=== PATIENT | female | born 2000 | race Hispanic/Latino ===

== ENCOUNTER 2020-12-16 09:18 | Emergency (ER) | payer OTHER, SELFPAY ==
[2020-12-16 10:18] LABS: #Monocytes 0.6 10x3/uL (0.0-1.1); #Neutrophils 5.8 10x3/uL (1.5-8.4); %Basophils 0.2 % (0.0-2.0); %Eosinophils 0.5 % (0.0-6.0); %Lymphocytes 25.1 % (18.0-47.0); %Monocytes 6.7 % (0.0-10.0); %Neutrophils 67.3 % (40.0-75.0); Hemoglobin 10.3 g/dL (12.0-15.5); Mean Corpuscular HGB CONC 31.1 g/dL (32.0-36.0); Mean Platelet Volume 9.8 fl (7.4-10.4); Platelet Count 254 10x3/uL (150-450); RBC Distribution Width 14.4 % (11.5-14.5); White Blood Cell (WBC) Count 8.6 10x3/uL (3.5-10.5)
== END 2020-12-16 12:03 | disposition home or self-care (01) ==
LOC: CSHERS 09:18
DX: O9A.211 Injury, poisoning and certain other consequences of external causes complicating pregnancy, first trimester (principal); S00.81XA Abrasion of other part of head, initial encounter; Y04.8XXA Assault by other bodily force, initial encounter; O20.9 Hemorrhage in early pregnancy, unspecified; O99.011 Anemia complicating pregnancy, first trimester; Z3A.10 10 weeks gestation of pregnancy
CPT/HCPCS: 76856; 84702; 85025; 86900; 86901; 90384; 96372

== ENCOUNTER 2021-07-07 22:18 | Day surgery (SDC) | payer OTHER ==
[2021-07-07 22:42] VITALS: BMI 32.3
[2021-07-07] MEDS ORDERED: hydrALAZINE 20 MG/ML VIAL SLOW IVP PRN (23:26)
[2021-07-08 00:59] LABS: Bilirubin Neg (Negative); Blood, Urine Negative (Negative); Clarity Clear (Clear); Glucose, Urine (Dipstick) Normal (Negative); Ketone, Urine 50 mg/dL (Negative); Leukocyte 25 (Negative); Nitrite Negative (Negative); Protein, Urine (Dipstick) 30 mg/dl (Neg-Trace); Specific Gravity, Urine 1.025 (1.002-1.036)
[2021-07-08 01:00] LABS: Urine Culture Reflex No No
[2021-07-08 01:01] LABS: Bacteria/HPF None Seen HPF (None Seen); RBC/HPF 0-3 HPF (0-3); Squamous Epithelial None Seen HPF (0-3); WBC/HPF 0-3 HPF (0-3)
== END 2021-07-08 01:30 | disposition home or self-care (01) ==
LOC: CSHLD/OP 22:18
PROVIDERS: ATTEND Obstetrics & Gynecology
DX: O99.891 Other specified diseases and conditions complicating pregnancy (principal); O99.013 Anemia complicating pregnancy, third trimester; R10.2 Pelvic and perineal pain; Z3A.34 34 weeks gestation of pregnancy; Z79.899 Other long term (current) drug therapy
CPT/HCPCS: 81001

== ENCOUNTER 2021-07-13 16:29 | Day surgery (SDC) | payer OTHER ==
[2021-07-13 17:34] LABS: Fetal Membranes Rupture No Membranes Rupture (No Rupture)
[2021-07-13] MEDS ORDERED: hydrALAZINE 20 MG/ML VIAL SLOW IVP PRN (17:42)
== END 2021-07-13 18:15 | disposition home or self-care (01) ==
LOC: CSHLD/OP 16:29
PROVIDERS: ATTEND Obstetrics & Gynecology
DX: O99.891 Other specified diseases and conditions complicating pregnancy (principal); N89.8 Other specified noninflammatory disorders of vagina; Z3A.35 35 weeks gestation of pregnancy; Z79.899 Other long term (current) drug therapy
CPT/HCPCS: 84112

== ENCOUNTER 2021-08-10 11:20 | Inpatient (IN) | payer OTHER ==
[2021-08-10] MEDS ORDERED: Butorphanol Tartrate 1 MG/ML VIAL SLOW IVP PRN (11:54)
[2021-08-10] MEDS ORDERED: Ondansetron PF 4 MG/2 ML Vial IVP PRN ×2 (11:54→17:13)
[2021-08-10] MEDS ORDERED: Promethazine HCl 25 MG/ML VIAL IM PRN ×2 (11:54→17:13)
[2021-08-10] MEDS ORDERED: Ibuprofen 800 MG TAB PO PRN (11:54)
[2021-08-10] MEDS ORDERED: Lidocaine 1% (PF) 30 ML VIAL SC PRN (11:54)
[2021-08-10] MEDS ORDERED: hydrALAZINE 20 MG/ML VIAL SLOW IVP PRN ×2 (11:54→17:13)
[2021-08-10] MEDS ORDERED: HYDROcodone/Acetaminophen 5/325 mg Tablet PO PRN (11:54)
[2021-08-10] MEDS ORDERED: Lactated Ringer's 1,000 ML IV SCH ×2 (12:00)
[2021-08-10] MEDS ORDERED: NS w/ Oxytocin 30 units 500 ML IV SCH ×2 (12:00→17:13)
[2021-08-10] MEDS ORDERED: Fentanyl 2 mcg/Bup 0.1% Cadd 100 ML ONE (12:04)
[2021-08-10 12:06] LABS: Hemoglobin 7.1 g/dL (12.0-15.5); Mean Corpuscular HGB CONC 28.3 g/dL (32.0-36.0); Mean Corpuscular Hemoglobin 19.1 pg (27.0-33.0); Mean Corpuscular Volume 67.5 fl (81.6-98.3); Mean Platelet Volume 9.5 fl (7.4-10.4); Platelet Count 224 10x3/uL (150-450); RBC Distribution Width 16.9 % (11.5-14.5); Red Blood Cell (RBC) Count 3.72 10x6/uL (3.90-5.03); White Blood Cell (WBC) Count 6.7 10x3/uL (3.5-10.5)
[2021-08-10 12:13] VITALS: BMI 33.3
[2021-08-10 12:35] LABS: Syphilis Antibody Nonreactive (Nonreactive); Syphilis Antibody Index 0.05 S/CO (<1.00 Non-Reactive)
[2021-08-10 12:36] LABS: Hep B Surf Ag Non-Reactive S/CO (NonReactive)
[2021-08-10] MEDS ORDERED: Misoprostol 200 MCG TAB ONE (14:22)
[2021-08-10 16:04] LABS: SARS-CoV-2 NAA Rapid Test DETECTED (NotDetected)
[2021-08-10] MEDS ORDERED: Lanolin Ointment 7 GM TUBE TOP PRN (17:13)
[2021-08-10] MEDS ORDERED: Milk Of Magnesia 30 ML UDCUP PO PRN (17:13)
[2021-08-10] MEDS ORDERED: Measles/Mumps/Rubella 10 MCG/0.5 ML VIAL SC ONE (17:13)
[2021-08-10] MEDS ORDERED: Methylergonovine 0.2 MG/ML VIAL IM PRN (17:13)
[2021-08-10] MEDS ORDERED: Preparation H Ointment 28 GM TUBE PR PRN (17:13)
[2021-08-10] MEDS ORDERED: Bisacodyl 10 MG SUPP PR PRN (17:13)
[2021-08-10] MEDS ORDERED: Zolpidem Tartrate 5 MG TAB PO PRN (17:13)
[2021-08-10] MEDS ORDERED: Boostrix 0.5 ML (Tdap) VIAL IM ONE (17:13)
[2021-08-10] MEDS ORDERED: diphenhydrAMINE 25 MG CAP PO PRN (17:13)
[2021-08-10] MEDS ORDERED: Benzocaine-Menthol 82.5 ML CAN TOP PRN (17:13)
[2021-08-10] MEDS ORDERED: Misoprostol 200 MCG TAB VAG PRN (17:13)
[2021-08-10] MEDS ORDERED: Acetaminophen 325 MG TAB PO PRN ×2 (17:58→18:26)
[2021-08-10] MEDS ORDERED: Ferrous Sulfate 325 MG TAB PO SCH (18:00)
[2021-08-10] MEDS: HYDROcodone/Acetaminophen 5/325 mg Tablet PO PRN (19:49)
[2021-08-10] MEDS: Ibuprofen 800 MG TAB PO SCH (21:30)
[2021-08-10] MEDS: Docusate Calcium (SURFAK) 240 MG CAP PO SCH (21:30)
[2021-08-11] MEDS: HYDROcodone/Acetaminophen 5/325 mg Tablet PO PRN ×2 (02:08→09:05)
[2021-08-11] MEDS: Ibuprofen 800 MG TAB PO SCH ×2 (04:55→14:33)
[2021-08-11 05:24] LABS: Hemoglobin 6.2 g/dL (12.0-15.5); Mean Corpuscular Hemoglobin 19.1 pg (27.0-33.0); Mean Platelet Volume 9.7 fl (7.4-10.4); Platelet Count 187 10x3/uL (150-450); RBC Distribution Width 16.8 % (11.5-14.5); Red Blood Cell (RBC) Count 3.24 10x6/uL (3.90-5.03); White Blood Cell (WBC) Count 6.7 10x3/uL (3.5-10.5)
[2021-08-11] MEDS: Docusate Calcium (SURFAK) 240 MG CAP PO SCH (08:59)
[2021-08-11] MEDS: Ferrous Sulfate 325 MG TAB PO SCH ×2 (08:59→16:46)
[2021-08-11] MEDS ORDERED: Prenatal Vitamin 1 TAB PO SCH (09:00)
[2021-08-11 15:59] VITALS: BP 119/61; TEMP 98.1
[2021-08-11] MEDS ORDERED: Varicella virus, LIVE 0.5 ML VIAL SC ONE (17:13)
== END 2021-08-11 19:30 | disposition home or self-care (01) | DRG 805 ==
LOC: CSHLD/OP 11:20 → CSHLD 14:28 → CSHPP 17:00
PROVIDERS: ADMIT Obstetrics & Gynecology; ATTEND Obstetrics & Gynecology
PROC: 10E0XZZ Delivery of Products of Conception, External Approach (ICD-10-PCS; principal; 2021-08-10)
DX: O98.52 Other viral diseases complicating childbirth (principal); U07.1 COVID-19; Z37.0 Single live birth; Z3A.39 39 weeks gestation of pregnancy
CPT/HCPCS: 36415; 51702; 85027; 86780; 86850; 86870; 86900; 86901; 86922; 87340; J2001; J2405; J2590; U0002

== ENCOUNTER 2022-02-22 17:21 | Emergency (ER) | payer OTHER | END 2022-02-22 19:51 | disposition home or self-care (01) | LOC: CSHERS 17:21 | DX: S60.212A Contusion of left wrist, initial encounter (principal); W19.XXXA Unspecified fall, initial encounter ==

== ENCOUNTER 2022-09-23 10:03 | Emergency (ER) | payer OTHER ==
[2022-09-23] MEDS ORDERED: Acetaminophen 500 MG TAB ONE (11:15)
== END 2022-09-23 11:36 | disposition home or self-care (01) ==
LOC: CSHERS 10:03
DX: O98.513 Other viral diseases complicating pregnancy, third trimester (principal); B34.9 Viral infection, unspecified; Z3A.29 29 weeks gestation of pregnancy
CPT/HCPCS: 99283

== ENCOUNTER 2022-11-23 22:42 | Day surgery (SDC) | payer OTHER ==
[2022-11-23 23:23] VITALS: BMI 35.1
[2022-11-24] MEDS ORDERED: hydrALAZINE 20 MG/ML VIAL SLOW IVP PRN (00:39)
== END 2022-11-24 03:06 | disposition home or self-care (01) ==
LOC: CSHLD/OP 22:42
PROVIDERS: ATTEND Obstetrics & Gynecology
DX: O26.853 Spotting complicating pregnancy, third trimester (principal); O47.1 False labor at or after 37 completed weeks of gestation; Z79.899 Other long term (current) drug therapy; Z3A.38 38 weeks gestation of pregnancy
CPT/HCPCS: 99283

== ENCOUNTER 2022-11-29 06:00 | Inpatient (IN) | payer OTHER ==
[2022-11-29] MEDS ORDERED: NS w/ Oxytocin 30 units 500 ML ONE (07:15)
[2022-11-29 07:32] VITALS: BMI 35.3
[2022-11-29] MEDS ORDERED: hydrALAZINE 20 MG/ML VIAL SLOW IVP PRN ×2 (08:04→16:11)
[2022-11-29] MEDS ORDERED: Tranexamic Acid 1,000 MG in Sodium Chloride 0.9% 250 ML 250 ML IVPB PRN (08:04)
[2022-11-29] MEDS ORDERED: Acetaminophen 500 MG TAB PO PRN (08:04)
[2022-11-29] MEDS ORDERED: Carboprost 250 MCG/ML AMP IM PRN (08:04)
[2022-11-29] MEDS ORDERED: Ondansetron PF 4 MG/2 ML Vial IVP PRN ×3 (08:04→16:11)
[2022-11-29] MEDS ORDERED: Misoprostol 200 MCG TAB PR PRN (08:04)
[2022-11-29] MEDS ORDERED: HYDROcodone/Acetaminophen 5/325 mg Tablet PO PRN ×2 (08:04)
[2022-11-29] MEDS ORDERED: Butorphanol Tartrate 1 MG/ML VIAL SLOW IVP PRN (08:04)
[2022-11-29] MEDS ORDERED: Promethazine HCl 25 MG/ML VIAL IM PRN ×3 (08:04→16:11)
[2022-11-29] MEDS ORDERED: Ibuprofen 800 MG TAB PO PRN (08:04)
[2022-11-29] MEDS ORDERED: Diphenoxylate HCl/Atropine Tablet PO PRN ×2 (08:04)
[2022-11-29] MEDS ORDERED: Methylergonovine 0.2 MG/ML VIAL IM PRN (08:04)
[2022-11-29] MEDS ORDERED: Lidocaine 1% (PF) 30 ML VIAL SC PRN (08:04)
[2022-11-29] MEDS ORDERED: Fentanyl 2 mcg/Bup 0.1% Cadd 100 ML ONE ×2 (08:11→08:13)
[2022-11-29] MEDS ORDERED: Lactated Ringer's 1,000 ML IV SCH (08:15)
[2022-11-29] MEDS ORDERED: NS w/ Oxytocin 30 units 500 ML IV SCH ×4 (08:15→16:11)
[2022-11-29 08:57] LABS: Mean Corpuscular HGB CONC 30.6 g/dL (32.0-36.0); Mean Corpuscular Hemoglobin 22.7 pg (27.0-33.0); Mean Corpuscular Volume 74.1 fl (81.6-98.3); Mean Platelet Volume 10.8 fl (7.4-10.4); Platelet Count 197 10x3/uL (150-450); RBC Distribution Width 23.8 % (11.5-14.5); Red Blood Cell (RBC) Count 3.97 10x6/uL (3.90-5.03); White Blood Cell (WBC) Count 8.1 10x3/uL (3.5-10.5)
[2022-11-29 10:06] LABS: Syphilis Antibody Nonreactive (Nonreactive); Syphilis Antibody Index 0.04 S/CO (<1.00 Non-Reactive)
[2022-11-29 10:08] LABS: Hep B Surf Ag - L&D Non-Reactive S/CO (NonReactive)
[2022-11-29] MEDS ORDERED: Acetaminophen 325 MG TAB PO PRN (10:36)
[2022-11-29] MEDS ORDERED: Moisturizing Cream (Eucerin) 113 GM JAR TOP PRN (10:36)
[2022-11-29] MEDS ORDERED: ePHEDrine Sulfate 50 MG/10 ML VIAL SLOW IVP PRN (10:36)
[2022-11-29] MEDS ORDERED: diphenhydrAMINE 50 MG/ML VIAL IVP PRN (10:36)
[2022-11-29] MEDS ORDERED: Lactated Ringer's 500 ML IV PRN (10:36)
[2022-11-29] MEDS ORDERED: Naloxone HCl 0.4 mg/ml Vial IVP PRN ×2 (10:36)
[2022-11-29] MEDS ORDERED: Communication Order-Pharmacy FS SCH (10:45)
[2022-11-29] MEDS ORDERED: Fentanyl 2 mcg/Bupivacaine 0.1% Cassette 100 ML EPIDURAL SCH (10:45)
[2022-11-29] MEDS ORDERED: Lanolin Ointment 7 GM TUBE TOP PRN (16:11)
[2022-11-29] MEDS ORDERED: Milk Of Magnesia 30 ML UDCUP PO PRN (16:11)
[2022-11-29] MEDS ORDERED: Zolpidem Tartrate 5 MG TAB PO PRN (16:11)
[2022-11-29] MEDS ORDERED: Preparation H Ointment 28 GM TUBE PR PRN (16:11)
[2022-11-29] MEDS ORDERED: diphenhydrAMINE 25 MG CAP PO PRN (16:11)
[2022-11-29] MEDS ORDERED: Varicella virus, LIVE 0.5 ML VIAL SC ONE (16:11)
[2022-11-29] MEDS ORDERED: Bisacodyl 10 MG SUPP PR PRN (16:11)
[2022-11-29] MEDS ORDERED: Misoprostol 200 MCG TAB VAG PRN (16:11)
[2022-11-29] MEDS ORDERED: Measles/Mumps/Rubella 10 MCG/0.5 ML VIAL SC ONE (16:11)
[2022-11-29] MEDS ORDERED: Boostrix 0.5 ML (Tdap) VIAL (>/=7 yrs of age) IM ONE (16:11)
[2022-11-29] MEDS ORDERED: Benzocaine-Menthol 82.5 ML CAN TOP PRN (16:11)
[2022-11-29] MEDS: Docusate 100 MG CAP PO SCH (20:40)
[2022-11-29] MEDS: HYDROcodone/Acetaminophen 5/325 mg Tablet PO PRN (20:40)
[2022-11-29] MEDS: Ferrous Sulfate 325 MG TAB PO SCH (20:40)
[2022-11-29] MEDS: Ibuprofen 800 MG TAB PO SCH (23:29)
[2022-11-30] MEDS: HYDROcodone/Acetaminophen 5/325 mg Tablet PO PRN (04:56)
[2022-11-30 05:48] LABS: Hemoglobin 8.2 g/dL (12.0-15.5); Mean Corpuscular HGB CONC 29.4 g/dL (32.0-36.0); Mean Corpuscular Hemoglobin 22.3 pg (27.0-33.0); Mean Platelet Volume 10.7 fl (7.4-10.4); Platelet Count 180 10x3/uL (150-450); RBC Distribution Width 23.9 % (11.5-14.5); Red Blood Cell (RBC) Count 3.67 10x6/uL (3.90-5.03); White Blood Cell (WBC) Count 6.7 10x3/uL (3.5-10.5)
[2022-11-30] MEDS: Ibuprofen 800 MG TAB PO SCH ×2 (06:06→13:19)
[2022-11-30] MEDS: Docusate 100 MG CAP PO SCH (08:06)
[2022-11-30] MEDS: Ferrous Sulfate 325 MG TAB PO SCH (08:06)
[2022-11-30] MEDS ORDERED: Prenatal Vitamin 1 TAB PO SCH (09:00)
[2022-11-30 11:33] VITALS: BP 105/59; TEMP 98.2
== END 2022-11-30 18:13 | disposition home or self-care (01) | DRG 807 ==
LOC: EEVIPCON 06:41 → CSHLD 06:41 → CSHPP 17:20
PROVIDERS: ADMIT Obstetrics & Gynecology; ATTEND Obstetrics & Gynecology
PROC: 10E0XZZ Delivery of Products of Conception, External Approach (ICD-10-PCS; principal; 2022-11-29)
PROC: 3E0P7VZ Introduction of Hormone into Female Reproductive, Via Natural or Artificial Opening (ICD-10-PCS; 2022-11-29)
PROC: 3E0234Z Introduction of Serum, Toxoid and Vaccine into Muscle, Percutaneous Approach (ICD-10-PCS; 2022-11-30)
DX: O26.893 Other specified pregnancy related conditions, third trimester (principal); Z37.0 Single live birth; Z67.11 Type A blood, Rh negative; Z3A.39 39 weeks gestation of pregnancy
CPT/HCPCS: 36415; 85027; 85461; 86780; 86850; 86870; 86900; 86901; 87340; 90384; 96372; J2590

== ENCOUNTER 2023-08-31 18:24 | Emergency (ER) | payer OTHER, SELFPAY ==
[2023-08-31] MEDS ORDERED: Acetaminophen 500 MG TAB ONE (18:46)
[2023-08-31 19:24] LABS: SARS-CoV-2 NAA Rapid Test Not Detected (NotDetected)
[2023-08-31 19:45] LABS: %Basophils 0.2 % (0.0-2.0); %Eosinophils 0.2 % (0.0-6.0); %Lymphocytes 11.5 % (18.0-47.0); %Neutrophils 79.9 % (40.0-75.0); Hemoglobin 12.6 g/dL (12.0-15.5); Mean Corpuscular HGB CONC 31.5 g/dL (32.0-36.0); Mean Corpuscular Hemoglobin 24.3 pg (27.0-33.0); Mean Corpuscular Volume 77.1 fl (81.6-98.3); Mean Platelet Volume 10.2 fl (7.4-10.4); Platelet Count 219 10x3/uL (150-450); Pregnancy Test - Urine (BHCG) Negative (Negative); Pregu Control Background? CLEAR/WHITE (CLR/WHITE); Pregu Control Bar Appear? YES (CONTROL BAR); RBC Distribution Width 14.3 % (11.5-14.5); Red Blood Cell (RBC) Count 5.19 10x6/uL (3.90-5.03); White Blood Cell (WBC) Count 12.5 10x3/uL (3.5-10.5)
[2023-08-31 19:57] LABS: ALT (SGPT) 27 U/L (8-55); AST (SGOT) 18 U/L (5-34); Albumin 4.6 g/dL (3.5-5.0); Alkaline Phosphatase 84 U/L (40-110); Anion Gap 13 mmol/L (10-20); BUN (Urea Nitrogen) 13 mg/dL (7.0-18.7); Bilirubin, Total 0.5 mg/dL (0.2-1.2); Calc. Creatinine Clearance 0 mL/min (70-130); Calcium 9.4 mg/dL (7.8-10.44); Carbon Dioxide 20 mmol/L (22-29); Chloride 104 mmol/L (98-107); Estimated GFR 87; Globulin 4.1 g/dL (2.4-3.5); Glucose 111 mg/dL (70-105); Lipase 15 U/L (8-78); Potassium 3.4 mmol/L (3.5-5.1); Protein, Total 8.7 g/dL (6.0-8.3); Sodium 134 mmol/L (136-145)
[2023-08-31 20:01] LABS: Bilirubin Neg (Negative); Blood, Urine 150 (Negative); Clarity Clear (Clear); Glucose, Urine (Dipstick) Normal (Negative); Ketone, Urine 15 mg/dL (Negative); Leukocyte 25 (Negative); Nitrite Positive (Negative); Protein, Urine (Dipstick) 30 mg/dl (Neg-Trace)
[2023-08-31 20:17] LABS: Bacteria/HPF 4+ HPF (None Seen); CAUTI Indications for Culture Fever or rigors; Mucous/LPF 2+ LPF (<2+); WBC/HPF 0-3 HPF (0-3)
[2023-08-31 20:18] LABS: Urine Culture Reflex No No
[2023-08-31] MEDS ORDERED: Ketorolac Tromethamine 30 MG/ML VIAL ONE (20:19)
[2023-08-31] MEDS ORDERED: cefTRIAXone (ROCEPHIN) 2 GM VIAL ONE (20:20)
[2023-08-31] MEDS ORDERED: Ondansetron PF 4 MG/2 ML Vial ONE (21:02)
== END 2023-08-31 21:33 | disposition home or self-care (01) ==
LOC: CSHERS 18:24
DX: N39.0 Urinary tract infection, site not specified (principal); B34.9 Viral infection, unspecified
CPT/HCPCS: 36415; 71045; 80053; 81001; 81025; 83605; 83690; 85025; 87040; 93005; 96361; 96365; 96375; J0696; J1885; J2405

== ENCOUNTER 2023-09-01 18:11 | Emergency (ER) | payer SELFPAY ==
[~2023-09-01 18:11] MED LIST: Iopamidol 300 61% 100 ML VIAL FS ONE
[2023-09-01] MEDS ORDERED: Ketorolac Tromethamine 30 MG (1 mL) VIAL ONE (19:50)
[2023-09-01] MEDS ORDERED: Dexamethasone 4 MG TAB ONE (19:51)
[2023-09-01 20:00] LABS: #Monocytes 0.8 10x3/uL (0.0-1.1); #Neutrophils 6.4 10x3/uL (1.5-8.4); %Basophils 0.1 % (0.0-2.0); %Eosinophils 0.1 % (0.0-6.0); %Neutrophils 70.6 % (40.0-75.0); Hematocrit 36.3 % (34.9-44.5); Hemoglobin 11.5 g/dL (12.0-15.5); Mean Corpuscular HGB CONC 31.7 g/dL (32.0-36.0); Mean Corpuscular Hemoglobin 24.4 pg (27.0-33.0); Mean Corpuscular Volume 77.1 fl (81.6-98.3); Platelet Count 171 10x3/uL (150-450); RBC Distribution Width 14.2 % (11.5-14.5); Red Blood Cell (RBC) Count 4.71 10x6/uL (3.90-5.03); White Blood Cell (WBC) Count 9.1 10x3/uL (3.5-10.5)
[2023-09-01 20:09] LABS: ALT (SGPT) 21 U/L (8-55); AST (SGOT) 15 U/L (5-34); Albumin 4.3 g/dL (3.5-5.0); Alkaline Phosphatase 73 U/L (40-110); Anion Gap 14 mmol/L (10-20); BUN (Urea Nitrogen) 10 mg/dL (7.0-18.7); Bilirubin, Total 0.4 mg/dL (0.2-1.2); Calc. Creatinine Clearance 0 mL/min (70-130); Calcium 9.2 mg/dL (7.8-10.44); Carbon Dioxide 21 mmol/L (22-29); Chloride 106 mmol/L (98-107); Estimated GFR 101; Globulin 3.9 g/dL (2.4-3.5); Glucose 85 mg/dL (70-105); Potassium 3.3 mmol/L (3.5-5.1); Protein, Total 8.2 g/dL (6.0-8.3); Sodium 138 mmol/L (136-145)
[2023-09-01] MEDS ORDERED: Ondansetron PF 4 MG/2 ML Vial ONE (20:40)
== END 2023-09-01 20:46 | disposition home or self-care (01) ==
LOC: CSHERS 18:11
DX: J02.9 Acute pharyngitis, unspecified (principal); R11.0 Nausea
CPT/HCPCS: 36415; 70491; 80053; 83605; 85025; 87081; 87430; 96374; 96375; J1885; J2405; J8540; Q9967